=== PATIENT | male | born 1975 | race Two or more races ===

== ENCOUNTER 2020-12-23 12:51 | Emergency (ER) | payer OTHER ==
[~2020-12-23] VITALS: Ht 175.3 cm; Wt 81.6 kg
[2020-12-23] MEDS ORDERED: ACETAMINOPHEN 500 MG TABLET PO ONE (14:15)
[2020-12-23 15:02] VITALS: BP 138/78
== END 2020-12-23 15:35 | disposition home or self-care (01) ==
LOC: EMS 12:55
DX: S09.90XA Unspecified injury of head, initial encounter (principal); Y04.8XXA Assault by other bodily force, initial encounter; Y93.89 Activity, other specified; Y92.89 Other specified places as the place of occurrence of the external cause; Y99.8 Other external cause status
CPT/HCPCS: 70450; 70486; 99284